=== PATIENT | female | born 2000 | race Caucasian/White ===

== ENCOUNTER 2021-09-03 03:49 | Observation (INO) | payer OTHER ==
[~2021-09-03] VITALS: Ht 162.6 cm; Wt 69.4 kg
[~2021-09-03 03:49] MED LIST: ASPIRIN CHEWABL81 MG PO; FERROUS SULFAT325 MG PO; FOLIC ACID0.4 MG PO; PRENATAL VITAM1 EAC3 PO; VINACAL B PREN1 EACH PO
[2021-09-03 06:00] LABS: BUN/CREATININE RATIO 10 (0-10)
[2021-09-03 06:01] LABS: HEMOGLOBIN 10.8 gm/dl (12.3-15.3); RED BLOOD COUNT 4.15 M/UL (4.00-5.10); WHITE BLOOD COUNT 12.8 K/UL (4.5-11.0)
[2021-09-03] MEDS ORDERED: PRENATAL VITAM1 EAC3 PO (18:55)
[2021-09-04 05:16] LABS: HEMOGLOBIN 9.9 gm/dl (12.3-15.3); RED BLOOD COUNT 3.82 M/UL (4.00-5.10)
[2021-09-04 05:17] LABS: WHITE BLOOD COUNT 7.7 K/UL (4.5-11.0)
[2021-09-04] MEDS ORDERED: MACROBID 100 M100 MG PO (08:16)
== END 2021-09-04 09:17 | disposition home or self-care (01) ==
LOC: GENOP 03:49 → OB 05:27
PROVIDERS: ADMIT Obstetrics & Gynecology
DX: O23.03 Infections of kidney in pregnancy, third trimester (principal); Z3A.35 35 weeks gestation of pregnancy
CPT/HCPCS: 36415; 80053; 81001; 85025; 87077; 87086; 87186; 96361; 96365; 96367; 96374; G0378; J0595; J0696

== ENCOUNTER 2021-09-16 11:46 | Outpatient (CLI) | payer OTHER ==
[~2021-09-16 11:46] MED LIST changes: +MACROBID 100 M100 MG PO
== END 2021-09-16 13:11 | disposition home or self-care (01) ==
LOC: GENOP 11:46
DX: O99.891 Other specified diseases and conditions complicating pregnancy (principal); O23.43 Unspecified infection of urinary tract in pregnancy, third trimester; O99.013 Anemia complicating pregnancy, third trimester; O98.313 Other infections with a predominantly sexual mode of transmission complicating pregnancy, third trimester; N39.0 Urinary tract infection, site not specified; N89.8 Other specified noninflammatory disorders of vagina; D64.9 Anemia, unspecified; Z3A.37 37 weeks gestation of pregnancy
CPT/HCPCS: 81001; 83518; G0463

== ENCOUNTER 2021-10-01 16:22 | Inpatient (IN) | payer OTHER ==
[~2021-10-01] VITALS: Ht 162.6 cm; Wt 72.6 kg
[2021-10-01] MEDS ORDERED: KEFLEX CAP 250250 MG PO (17:48)
[2021-10-01 18:10] LABS: HEMOGLOBIN 10.5 gm/dl (12.3-15.3); RED BLOOD COUNT 4.21 M/UL (4.00-5.10); WHITE BLOOD COUNT 8.2 K/UL (4.5-11.0)
[2021-10-03 04:15] LABS: HEMOGLOBIN 10.7 gm/dl (12.3-15.3)
[2021-10-03] MEDS ORDERED: HYDROCODON-ACE1 EAC4 PO (12:32)
[2021-10-03] MEDS ORDERED: IBUPROFEN800 MG PO (12:32)
[2021-10-03] MEDS ORDERED: COLACE 100MG C100 MG PO (12:32)
== END 2021-10-03 16:22 | disposition home or self-care (01) | DRG 807 ==
LOC: GENOP 16:22 → OB 16:57
PROVIDERS: Obstetrics & Gynecology; ADMIT Obstetrics & Gynecology
PROC: 4A1HXCZ Monitoring of Products of Conception, Cardiac Rate, External Approach (ICD-10-PCS; 2021-10-01)
PROC: 10E0XZZ Delivery of Products of Conception, External Approach (ICD-10-PCS; principal; 2021-10-02)
PROC: 10907ZC Drainage of Amniotic Fluid, Therapeutic from Products of Conception, Via Natural or Artificial Opening (ICD-10-PCS; 2021-10-02)
DX: O99.02 Anemia complicating childbirth (principal); Z37.0 Single live birth; D64.9 Anemia, unspecified; Z20.822 Contact with and (suspected) exposure to COVID-19; Z3A.39 39 weeks gestation of pregnancy; Z80.9 Family history of malignant neoplasm, unspecified; Z83.49 Family history of other endocrine, nutritional and metabolic diseases
CPT/HCPCS: 36415; 81001; 82800; 85014; 85018; 85025; J2405; J2590; J7120; U0002

== ENCOUNTER 2022-02-16 18:00 | Emergency (ER) | payer OTHER ==
[~2022-02-16 18:00] MED LIST changes: +COLACE 100MG C100 MG PO; +HYDROCODON-ACE1 EAC4 PO; +IBUPROFEN800 MG PO; +KEFLEX CAP 250250 MG PO
[2022-02-16 19:15] LABS: HEMOGLOBIN 11.9 gm/dl (12.3-15.3); RED BLOOD COUNT 4.12 M/UL (4.00-5.10); WHITE BLOOD COUNT 7.1 K/UL (4.5-11.0)
[2022-02-16 19:23] LABS: BUN/CREATININE RATIO 15 (0-10)
== END 2022-02-16 23:58 | disposition home or self-care (01) ==
LOC: ER1 18:00
PROVIDERS: Nurse Practitioner
DX: R07.89 Other chest pain (principal); R40.2410 Glasgow coma scale score 13-15, unspecified time
CPT/HCPCS: 71045; 71275; 80053; 82550; 82553; 84484; 85025; 93005; 99285; Q9967